=== PATIENT | female | born 2000 | race Caucasian/White ===

== ENCOUNTER 2024-10-11 15:49 | Emergency (ER) | payer OTHER, SELFPAY ==
[2024-10-11 15:53] VITALS: BP 146/68
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
[2024-10-11] MEDS: ADACEL 0.5 ML IM (18:17)
[2024-10-11] MEDS: MOTRIN 400 MG PO (18:17)
[2024-10-11 18:44] VITALS: BP 125/94
== END 2024-10-11 18:45 | disposition home or self-care (01) ==
LOC: EMR 15:49
PROVIDERS: EMERGENCY PHYSICIAN Emergency Medicine; FAMILY PHYSICIAN Internal Medicine
DX: S00.03XA Contusion of scalp, initial encounter (principal); S80.211A Abrasion, right knee, initial encounter; S90.811A Abrasion, right foot, initial encounter; M54.2 Cervicalgia; V49.88XA Car occupant (driver) (passenger) injured in other specified transport accidents, initial encounter
CPT/HCPCS: 99284; 90471; 70450; 72125; 90715